=== PATIENT | male | born 1970 | race Caucasian/White ===

== ENCOUNTER → 2016-05-10 | Outpatient (CLI) | payer BC ==
[~2016-05-10] MED LIST: ALLO100T PO; IBUP-1277 PO; OLME40TA30 PO
--- NOTE | 2016-05-10 12:10 | DIAGNOSTIC IMAGING REPORT ---
CHEST 2 VIEWS ROUTINE CLINICAL HISTORY: BLOOD-TINGED SPUTUM, COUGH COMPARISON STUDY: No previous studies for comparison. FINDINGS: The cardiac and mediastinal contours are normal. There is no focal pulmonary consolidation. There is no failure. There are no pleural effusions.[ IMPRESSION: No active disease in the chest. Electronically signed by: Nathan Torres M.D. 05/10/2016 12:08 PM Dictated Date/Time: 05/10/2016 12:08 PM
== END | disposition home or self-care (01) ==
LOC: C.RADBC 11:46
PROVIDERS: ATTEND Internal Medicine Geriatric Medicine
DX: R04.2 Hemoptysis (principal); R05 Cough

== ENCOUNTER → 2016-06-27 | Outpatient (CLI) | payer BC ==
--- NOTE | 2016-06-27 14:39 | DIAGNOSTIC IMAGING REPORT ---
RIGHT FOOT MIN 3 VIEWS ROUTINE CLINICAL HISTORY: M79.673 Right pain COMPARISON: None. DISCUSSION: Mild degenerative change throughout. Heel spur. No acute bony abnormality. Study specifically negative for fracture or dislocation. There is no evidence for soft tissue swelling. IMPRESSION: No acute bony abnormality. Heel spur. Mild degenerative change. Electronically signed by: Cullen Long M.D. 06/27/2016 2:38 PM Dictated Date/Time: 06/27/2016 2:37 PM
== END | disposition home or self-care (01) ==
LOC: C.RADBC 14:08
PROVIDERS: ATTEND Internal Medicine Geriatric Medicine
DX: M79.671 Pain in right foot (principal)

== ENCOUNTER → 2017-07-29 | Outpatient (CLI) | payer OTHER ==
--- NOTE | 2017-07-29 13:38 | DIAGNOSTIC IMAGING REPORT ---
CHEST 2 VIEWS ROUTINE HISTORY: 46 years-old Male R05 Cough productive of purulent [id number] Shortness of breat acute productive cough with shortness of breath COMPARISON: Chest radiographs 05/10/2016 TECHNIQUE: PA and lateral views of the chest FINDINGS: Cardiomediastinal and hilar silhouettes are within normal limits. No pneumothorax, pleural effusion, or overt pulmonary edema. Ill-defined lingular opacities are seen on the lateral projection without correlate on the PA view. The bones of the chest appear grossly intact. IMPRESSION: Ill-defined lingular opacities seen on the lateral view are suspicious for possible pneumonia. The above report was generated using voice recognition software. It may contain grammatical, syntax or spelling errors. Electronically signed by: Shivam Nolan M.D. 07/29/2017 1:37 PM Dictated Date/Time: 07/29/2017 1:34 PM
== END | disposition home or self-care (01) ==
LOC: C.RAD1850 13:25
PROVIDERS: ATTEND Internal Medicine
DX: R91.8 Other nonspecific abnormal finding of lung field (principal); R06.02 Shortness of breath; R05 Cough; Z87.898 Personal history of other specified conditions

== ENCOUNTER → 2017-07-30 | Outpatient (CLI) | payer OTHER ==
[2017-07-30 17:06] LABS: ALT/SGPT 44 U/L (12-78); AST/SGOT 28 U/L (15-37); BLOOD UREA NITROGEN 15 mg/dl (7-18); CALCIUM 8.8 mg/dl (8.5-10.1); CARBON DIOXIDE 30 mmol/L (21-32); CHOLESTEROL 145 mg/dl (0-200); CREATININE 1.28 mg/dl (0.60-1.40); GLUCOSE 103 mg/dl (70-99); POTASSIUM 4.1 mmol/L (3.5-5.1); SODIUM 137 mmol/L (136-145); URIC ACID 6.3 mg/dl (2.6-7.2)
[2017-07-30 17:10] LABS: ALKALINE PHOSPHATASE 69 U/L (45-117); LDL CHOLESTEROL (DIRECT) 101 mg/dl; TOTAL PROTEIN 7.7 gm/dl (6.4-8.2)
[2017-07-31 06:05] LABS: HEMOGLOBIN A1C 5.5 % (4.5-5.6)
== END | disposition home or self-care (01) ==
LOC: C.LABBC 14:19
PROVIDERS: ATTEND Physician Assistant Medical
DX: M79.673 Pain in unspecified foot (principal); I10 Essential (primary) hypertension; E78.5 Hyperlipidemia, unspecified; R73.9 Hyperglycemia, unspecified

== ENCOUNTER 2020-06-13 04:16 | Inpatient (IN) ==
[2020-06-13] MEDS ORDERED: SODIUM CHLORIDE 0.9% 1000ML 1,000 ML IV ONE (04:30)
[2020-06-13] MEDS ORDERED: DEXAMETHASONE SOD INJ 10 MG/ML VIAL IV ONE (04:30)
[2020-06-13 04:39] LABS: Basophils # (auto) 0.01 K/uL (0-0.2); Basophils % (auto) 0.2 %; Eosinophils # (auto) 0.02 K/uL (0-0.5); Eosinophils % (auto) 0.4 %; Hemoglobin 15.1 g/dL (14.0-18.0); Immature Granulocytes # (auto) 0.03 K/uL (0.00-0.02); Immature Granulocytes % (auto) 0.6 %; Lymphocytes # (auto) 0.83 K/uL (1.2-3.4); Lymphocytes % (auto) 16.5 %; Mean Corpuscular Hemoglobin 29.2 pg (25-34); Mean Corpuscular Hgb Conc 34.3 g/dL (32-36); Mean Corpuscular Volume 85.1 fL (80-100); Mean Platelet Volume 11.5 fL (7.4-10.4); Monocytes # (auto) 0.48 K/uL (0.11-0.59); Monocytes % (auto) 9.5 %; Neutrophils # (auto) 3.66 K/uL (1.4-6.5); Neutrophils % (auto) 72.8 %; Platelet Count 169 K/uL (130-400); RDW Coefficient of Variation 13.3 % (11.5-14.5); RDW Standard Deviation 41.3 fL (36.4-46.3); Red Blood Count 5.17 M/uL (4.7-6.1); White Blood Count 5.03 K/uL (4.8-10.8)
[2020-06-13] MEDS ORDERED: ACETAMINOPHEN 1,000 MG/100 ML VIAL IV STA (04:40)
--- NOTE | 2020-06-13 04:49 | Emergency Department Note ---
History of Present Illness General Chief complaint: Shortness of Breath/Dyspnea Stated complaint: SHORT OF BREATH Time Seen by Provider: 06/13/20 04:21 Source: patient Mode of arrival: EMS Limitations: no limitations History of Present Illness Maximum Pain Intensity: 7 This patient is a 49-year-old male who arrives to the emergency department via EMS for evaluation of shortness of breath. Patient tested positive for COVID-19 6 days ago. His symptoms started 2 days before that. He has had fevers throughout the entire illness. He reports cough, shortness of breath, headache, lack of sleep, body aches and decreased appetite. He states that over the past few days, he has been coughing up "chunks of blood" and states there are tablespoon size. He has been taking Tylenol for his symptoms without much relie f. Patient was feeling more short of breath tonight. On EMS arrival, patient's O2 saturation was 78% on room air. This improved to the 90s after administration of 6 L oxygen via nasal cannula. Patient denies any history of chronic lung disease. He does have a history of sleep apnea. He is not a smoker. He denies leg pain/swelling. Denies history of blood clots. Home Medications Medication Instructions Recorded Confirmed Type escitalopram oxalate 10 mg tablet 10 mg PO DAILY #90 tab 11/04/19 06/13/20 Rx olmesartan 40 1 tab PO DAILY #90 tab 02/03/20 06/13/20 Rx mg-hydrochlorothiazide 25 mg tablet CPAP Machine See Rx Instructions .ROUTE 03/04/20 06/13/20 Rx .COMPLEX #1 ea nebivolol 5 mg tablet 5 mg PO HS #90 tab 06/09/20 06/13/20 Rx allopurinol 300 mg PO DAILY 06/13/20 06/13/20 History amlodipine 5 mg PO DAILY 06/13/20 06/13/20 History Allergies Allergy/AdvReac Type Severity Reaction Status Date / Time Cephalosporins Allergy Severe Hives Verified 06/13/20 04:36 Sulfa (Sulfonamide Allergy Mild Unknown Verified 06/13/20 04:36 Antibiotics) Penicillins Allergy Unknown Unknown Verified 06/13/20 04:36 Past Med/Surg History Medical History (Updated 06/13/20 @ 06:28 by Valorie Sher PA-C) BMI 45.0-49.9, adult Depression with anxiety Dyslipidemia Gout Hyperglycemia Hypertension Knee injury Muscle cramps Obstructive sleep apnea cpap Tear of meniscus of knee Surgical History H/O arthroscopy of knee Family History Mother Breast cancer Father Kidney malignancy Grandfather (Maternal) Prostate cancer Denies family history of Ovarian cancer Colorectal cancer Lung disease Social History Smoking Status: Never smoker Hx Alcohol Use: Yes Alcohol type: beer Hx Substance Use: No Preferred Language: Serbian Communication Ability: Effective Visual Impairment: No Limitations Hearing Ability: Normal marital status: Current Living Situation: Family Current Living Situation Comment: and son Feels Safe at Home: Yes caffeine: Yes Dental Care, Regularly: Yes Physical Activity Frequency: Daily Physical Activity Frequency Comment: work Seatbelt Use: always Sunscreen Use: Yes Review of Systems A total of 10 systems reviewed and were otherwise negative Physical Exam Vital Signs Vital Signs - 24 hr 06/13/20 04:16 06/13/20 04:18 06/13/20 04:33 Temperature 37.9 C H Temperature Source Oral Pulse Rate 75 Pulse Rate [Apical] Respiratory Rate 20 Blood Pressure 150/91 H Blood Pressure [Right Arm] Blood Pressure Mean 110 Blood Pressure Mean [Right Arm] Pulse Oximetry 83 L 94 Oxygen Delivery Method Room Air Nasal Cannula Nasal Cannula Oxygen Flow Rate 4.5 Sepsis Recent Fever Within 48 Hours Yes Sepsis New/Unexplained Change in Mental Status N/A Sepsis Action Taken by Nursing No Action Required Oxygen Flow Rate - Titration 4.5 Pulse Oximetry Post Tiitration 95 06/13/20 06:14 Temperature Temperature Source Pulse Rate Pulse Rate [Apical] 60 Respiratory Rate 23 Blood Pressure Blood Pressure [Right Arm] 136/73 Blood Pressure Mean Blood Pressure Mean [Right Arm] 94 Pulse Oximetry 95 Oxygen Delivery Method Nasal Cannula Oxygen Flow Rate 4.5 Sepsis Recent Fever Within 48 Hours Sepsis New/Unexplained Change in Mental Status Sepsis Action Taken by Nursing Oxygen Flow Rate - Titration Pulse Oximetry Post Tiitration VITALS: Vitals are noted on the nurse's note and reviewed by myself. GENERAL: This is a 49-year-old male, ill-appearing. SKIN: The skin was without rashes. HEAD: Normocephalic atraumatic. EARS: External auditory canals clear, tympanic membranes pearly sanders without erythema or effusion bilaterally. EYES: Pupils equal round and reactive to light and accommodation. NOSE: Patent, turbinates without inflammation or discharge. MOUTH: Mucous membranes moist. Tonsils are not enlarged. Pharynx without erythema or exudate. NECK: Supple without nuchal rigidity. No lymphadenopathy. HEART: Regular rate and rhythm without murmurs gallops or rubs. LUNGS: Breath sounds diminished throughout. ABDOMEN: Positive bowel sounds x 4. Soft, nontender to palpation. NEURO: Patient was alert and oriented to person place and time. Course Consultations Consultation #1: Dr. Jaeger [facility] hospitalist Administered Medications Heparin Sodium/Dextrose (Heparin Sodium/Dextrose) 25,000 units in 500 mls @ 20 mls/hr IV .Q24H [facility]; Protocol Stop: 07/13/20 06:14 Last Admin: 06/13/20 06:16 Dose: 1,000 units/hr, 20 mls/hr Documented by: [id number] Cosigned by: [id number] Discontinued Medications Dexamethasone (Dexamethasone Sod Inj 10 Mg/Ml Vial) 6 mg IV NOW ONE Stop: 06/13/20 04:31 Last Admin: 06/13/20 04:48 Dose: 6 mg Documented by: [id number] Heparin Sodium/Dextrose (Heparin Iv Low Dose *No* Bolus) 1 ea IV ONE ONE; Protocol Stop: 06/13/20 06:02 Last Admin: 06/13/20 06:22 Dose: Not Given Documented by: [id number] Heparin Sodium/Dextrose (Heparin 58742 Unit/500 Ml D5w) Confirm Administered Dose 25,000 units IV .STK-MED ONE Stop: 06/13/20 06:12 Last Admin: 06/13/20 06:16 Dose: 1,000 units Documented by: [id number] Cosigned by: [id number] Sodium Chloride (Nss 1000ml) 1,000 mls @ 999 mls/hr IV .Q1H1M ONE Stop: 06/13/20 05:30 Last Infusion: 06/13/20 05:50 Dose: 0 mls/hr Documented by: [id number] Admin: 06/13/20 04:48 Dose: 999 mls/hr Documented by: [id number] Acetaminophen (Ofirmev) 1,000 mg in 100 mls @ 400 mls/hr IV NOW STA Stop: 06/13/20 04:54 Last Infusion: 06/13/20 05:09 Dose: 0 mls/hr Documented by: [id number] Admin: 06/13/20 04:48 Dose: 400 mls/hr Documented by: [id number] Ioversol (Optiray 320 125ml) 125 ml IV ONCE ONE Stop: 06/13/20 06:17 Last Admin: 06/13/20 06:16 Dose: 117 ml Documented by: [id number] Critical Care Time Critical Care Time: Yes Total Critical Care Time: 35 I have personally spent greater than 35 minutes of critical care time in the direct management of this patient. This includes bedside care, interpretation of diagnostic studies, and testing, discussion with consultants, patient, and family members, and other required patient management activities. This 35 minutes is in excess of all separately billable procedures. Medical Decision Making Differential Diagnosis COVID-19 pneumonia, reactive airway disease, pneumonia, pneumothorax, COPD, CHF, infections, cardiac ischemia, pulmonary embolism, musculoskeletal, gastrointestinal, as well as other pathologies. Home Medications Current Medication List: was personally reviewed by me Laboratory Data Attestation: I reviewed the patient's lab results. Result diagrams: 06/13/20 04:26 06/13/20 05:15 Lab Results 06/13/20 06/13/20 06/13/20 Range/Units 04:26 04:26 04:26 WBC 5.03 (4.8-10.8) K/uL RBC 5.17 (4.7-6.1) M/uL Hgb 15.1 (14.0-18.0) g/dL Hct 44.0 (42-52) % MCV 85.1 (80-100) fL MCH 29.2 (25-34) pg MCHC 34.3 (32-36) g/dL RDW Std Deviation 41.3 (36.4-46.3) fL RDW Coeff of Krishan 13.3 (11.5-14.5) % Plt Count 169 (130-400) K/uL MPV 11.5 H (7.4-10.4) fL Immature Gran % (Auto) 0.6 % Neut % (Auto) 72.8 % Lymph % (Auto) 16.5 % [place] % (Auto) 9.5 % Eos % (Auto) 0.4 % Baso % (Auto) 0.2 % Neut # (Auto) 3.66 (1.4-6.5) K/uL Lymph # (Auto) 0.83 L (1.2-3.4) K/uL [place] # (Auto) 0.48 (0.11-0.59) K/uL Eos # (Auto) 0.02 (0-0.5) K/uL Baso # (Auto) 0.01 (0-0.2) K/uL Immature Gran # (Auto) 0.03 H (0.00-0.02) K/uL PT Cancelled INR Cancelled APTT Cancelled PTT Ratio Cancelled D-Dimer Cancelled Sodium Cancelled Potassium Cancelled Chloride Cancelled Carbon Dioxide Cancelled Anion Gap Cancelled BUN Cancelled Creatinine Cancelled Est Cr Clr Drug Dosing Cancelled Est GFR ( Amer) Cancelled Est GFR (Non-Af Amer) Cancelled BUN/Creatinine Ratio Cancelled Glucose Cancelled Lactate (0.4-2.0) mmol/L Calcium Cancelled Total Bilirubin Cancelled AST Cancelled ALT Cancelled Alkaline Phosphatase Cancelled Troponin I Cancelled Total Protein Cancelled Albumin Cancelled Globulin Cancelled Albumin/Globulin Ratio Cancelled 06/13/20 06/13/20 06/13/20 Range/Units 05:15 05:15 05:15 WBC (4.8-10.8) K/uL RBC (4.7-6.1) M/uL Hgb (14.0-18.0) g/dL Hct (42-52) % MCV (80-100) fL MCH (25-34) pg MCHC (32-36) g/dL RDW Std Deviation (36.4-46.3) fL RDW Coeff of Krishan (11.5-14.5) % Plt Count (130-400) K/uL MPV (7.4-10.4) fL Immature Gran % (Auto) % Neut % (Auto) % Lymph % (Auto) % [place] % (Auto) % Eos % (Auto) % Baso % (Auto) % Neut # (Auto) (1.4-6.5) K/uL Lymph # (Auto) (1.2-3.4) K/uL [place] # (Auto) (0.11-0.59) K/uL Eos # (Auto) (0-0.5) K/uL Baso # (Auto) (0-0.2) K/uL Immature Gran # (Auto) (0.00-0.02) K/uL PT 10.5 INR 1.0 APTT 29.5 PTT Ratio 1.1 D-Dimer 800 H* Sodium 138 Potassium 4.0 Chloride 103 Carbon Dioxide 30 Anion Gap 5.0 BUN 14 Creatinine 1.14 Est Cr Clr Drug Dosing 125.8 Est GFR ( Amer) 87.7 Est GFR (Non-Af Amer) 75.6 BUN/Creatinine Ratio 12.5 Glucose 106 H Lactate 0.7 (0.4-2.0) mmol/L Calcium 8.0 L Total Bilirubin 0.7 AST 44 H ALT 46 Alkaline Phosphatase 53 Troponin I < 0.015 Total Protein 7.1 Albumin 3.4 Globulin 3.7 Albumin/Globulin Ratio 0.9 Imaging Data Attestation: I personally reviewed and interpreted this imaging study as follows: My Impression: CHEST 1 VIEW: Patchy bilateral infiltrates consistent with a multifocal pneumonia Radiologist's Impression: CTA CHEST: No evidence for pulmonary embolism. No AV malformation. The location of the reported hemoptysis is not clearly evident. Diffuse irregular ground-glass opacities are consistent with reported positive Covid viral pneumonia. No lobar consolidation. No pleural effusion or pneumothorax. No endobronchial filling defect. The thoracic aorta and cardiac chambers are unremarkable. No pericardial effusion Paratracheal, prevascular and hilar lymph nodes are nonspecific and presumed reactive. No acute osseous or significant overlying soft tissue abnormality. Radiologist: Koko Marquis MD ECG Data Attestation: I personally reviewed and interpreted this ECG as follows: Indication: + SOB/dyspnea Rate (beats per minute): 75 Rhythm: + normal sinus ECG Intervals/blocks: + Normal QRS ECG ST segments: + Normal ST segments Comparison ECG Date: no prior available MDM Narrative Continuous alarm security or surveillance monitor: Order was placed for continuous alarm security or surveillance monitor. Patient was placed on the alarm security or surveillance monitor. Patient was noted to be in normal sinus rhythm at an initial rate of 75 bpm. The patient is a 49-year-old male who presents today complaining of shortness of breath. Patient recently tested positive for COVID-19. Per EMS, patient was 78% on room air when they arrived. On arrival here, patient was 83% on room air, however this improved to the mid 90s on 4.5 L nasal cannula. Patient is febrile and was given Tylenol for this. He looks slightly dry clinically and was given a liter of fluids. He was given IV Decadron. Chest x-ray consistent with Covid pneumonia. Labs with no leukocytosis, anemia or concerning electrolyte abnormalities. D-dimer was elevated at 800. Troponin was not elevated. CT angiogram of the chest with multifocal pneumonia, no PE. Case was discussed with the [facility] hospitalist service, who agreed to evaluate the patient for further care. Impression & Plan Pneumonia due to COVID-19 virus, Hypoxia Discharge Plan Visit Data Chief Complaint: Shortness of Breath/Dyspnea Stated Complaint: SHORT OF BREATH ED Provider: Joie [facility] ED Midlevel Provider: Valorie Sher Discharge Problem: Pneumonia due to COVID-19 virus, Hypoxia Patient Disposition: Admitted As Inpatient Forms Stand Alone Forms: My [facility] Prescriptions Prescriptions: No Action escitalopram oxalate 10 mg tablet 10 mg PO DAILY Qty: 90 RF: 3 CPAP Machine Misc See Rx Instructions .ROUTE .COMPLEX Qty: 1 RF: 0 Bystolic 5 mg tablet 5 mg PO HS Qty: 90 RF: 3 olmesartan-hydrochlorothiazide 40-25 mg tablet 1 tab PO DAILY Qty: 90 RF: 3 amlodipine 5 mg tablet 5 mg PO DAILY RF: 0 allopurinol 300 mg Tablet 300 mg PO DAILY RF: 0 Referrals Referrals: Thanh Tracy DO [Primary Care Provider] -
[2020-06-13 05:39] LABS: Partial Thromboplastin Ratio 1.1; Partial Thromboplastin Time 29.5 Seconds (21.0-31.0); Prothrombin Time 10.5 Seconds (9.0-12.0)
[2020-06-13 05:49] LABS: Alanine Aminotransferase 46 U/L (12-78); Albumin Level 3.4 gm/dl (3.4-5.0); Aspartate Aminotransferase 44 U/L (15-37); BUN Creatinine Ratio 12.5 (10-20); Blood Urea Nitrogen 14 mg/dl (7-18); Carbon Dioxide 30 mmol/L (21-32); Chloride 103 mmol/L (98-107); Creatinine Clr Calc Pharmacy 125.8 ml/min; Est GFR (African American) 87.7; Est GFR (Non-African American) 75.6; Glucose 106 mg/dl (70-99); Sodium 138 mmol/L (136-145)
[2020-06-13 05:53] LABS: Albumin Globulin Ratio 0.9 (0.9-2); Alkaline Phosphatase 53 U/L (45-117); Bilirubin,Total 0.7 mg/dl (0.2-1); Globulin 3.7 gm/dl (2.5-4.0); Total Protein 7.1 gm/dl (6.4-8.2); Troponin I < 0.015 ng/ml (0-0.045)
[2020-06-13 05:57] LABS: D Dimer 800 ug/L FEU (0-500)
[2020-06-13] MEDS ORDERED: Heparin IV Adult Wt-Based Low-Dose *NO* Bolus Protocol IV ONE (06:01)
[2020-06-13] MEDS ORDERED: HEPARIN 25000 UNIT/500 ML D5W IV ONE (06:11)
[2020-06-13] MEDS: HEPARIN SODIUM/DEXTROSE 25,000 UNITS/500 ML BAG IV SCH (06:16)
[2020-06-13] MEDS ORDERED: OPTIRAY 320 125ml IV ONE (06:16)
--- NOTE | 2020-06-13 07:04 | History & Physical Report ---
Date of Service June 13, 2020 Assessment & Plan (1) Pneumonia due to COVID-19 virus: Pneumonia due to COVID-19 virus with hypoxia- Admit to monitored bed Nasal cannula oxygen, titrate to keep pulse ox 94% Dexamethasone 6 mg IV every morning Zinc sulfate turn 20 mg p.o. every morning Vitamin D 2000 international units daily Vancomycin IV per pharmacokinetic monitoring Aztreonam 1000mg IV every 8 hours Azithromycin 500 mg IV every 24 hours Patient with worsening symptoms after 9 days of concern regarding secondary bacterial pneumonia, and he is allergic to cephalosporins and penicillins. Present on Admission?: Yes (2) Hypoxia: See above Present on Admission?: Yes (3) Depression with anxiety: Continue Escitalopram Present on Admission?: Yes (4) Gout: Continue allopurinol Present on Admission?: Yes (5) Dyslipidemia: On no specific treatment Present on Admission?: Yes (6) Hyperglycemia: Glucose 106 upon admission, if increases while on dexamethasone, can start Accu-Cheks at that time Present on Admission?: Yes (7) Hypertension: Continue amlodipine 5 mg daily and nebivolol 5 mg daily. For now hold on losartan/HCTZ 40/25 daily Present on Admission?: Yes (8) Obstructive sleep apnea: CPAP at bedtime, patient thinks his setting is 10. Present on Admission?: Yes History of Present Illness Chief Complaint: The patient presents to the emergency department with worsening shortness of breath over the past 3 evenings. Primary Care Provider: Thanh Tracy DO The patient is a 49-year-old male with a past medical history including depression with anxiety, morbid obesity, dyslipidemia, gout, hyperglycemia, hypertension and obstructive sleep apnea. He began to initially have difficulty with worsening shortness of breath about 9 days ago, had COVID-19 testing done on 06/07/20, and was told that it was positive on 06/09/20. He presents to the emergency department this evening because of inability to sleep over the past 3 nights due to severe headache and shortness of breath. In the emergency department, patient was found to have a temperature 100.2 F, and a pulse ox on room air of 83%, which improved to 96% on 4 L/min nasal cannula oxygen. Abnormal laboratories include the following: D-dimer 800, glucose 106, calcium 8.0, AST 44. CT angiography chest PE protocol showed no evidence for PE. No review information. Did show diffuse irregular groundglass opacities consistent with reported positive Covid viral pneumonia Allergies Allergy/AdvReac Type Severity Reaction Status Date / Time Cephalosporins Allergy Severe Hives Verified 06/13/20 04:36 Sulfa (Sulfonamide Allergy Mild Unknown Verified 06/13/20 04:36 Antibiotics) Penicillins Allergy Unknown Unknown Verified 06/13/20 04:36 Home Medications Medication Instructions Recorded Confirmed Type escitalopram oxalate 10 mg tablet 10 mg PO DAILY #90 tab 11/04/19 06/13/20 Rx olmesartan 40 1 tab PO DAILY #90 tab 02/03/20 06/13/20 Rx mg-hydrochlorothiazide 25 mg tablet CPAP Machine See Rx Instructions .ROUTE 03/04/20 06/13/20 Rx .COMPLEX #1 ea nebivolol 5 mg tablet 5 mg PO HS #90 tab 06/09/20 06/13/20 Rx allopurinol 300 mg PO DAILY 06/13/20 06/13/20 History amlodipine 5 mg PO DAILY 06/13/20 06/13/20 History Past Med/Surg History Medical History (Updated 06/13/20 @ 06:28 by Valorie Sher PA-C) BMI 45.0-49.9, adult Depression with anxiety Dyslipidemia Gout Hyperglycemia Hypertension Knee injury Muscle cramps Obstructive sleep apnea cpap Tear of meniscus of knee Surgical History H/O arthroscopy of knee Family History Mother Breast cancer Father Kidney malignancy Grandfather (Maternal) Prostate cancer Denies family history of Ovarian cancer Colorectal cancer Lung disease Social History Smoking Status: Never smoker Hx Alcohol Use: Yes Alcohol type: beer Hx Substance Use: No Preferred Language: Greenlandic Communication Ability: Effective Visual Impairment: No Limitations Hearing Ability: Normal marital status: Current Living Situation: Family Current Living Situation Comment: and son Feels Safe at Home: Yes caffeine: Yes Dental Care, Regularly: Yes Physical Activity Frequency: Daily Physical Activity Frequency Comment: work Seatbelt Use: always Sunscreen Use: Yes Review of Systems Review of Systems: The patient denies palpitations, cough, lower extremity swelling, sore throat, fevers, chills, sweats, nausea, vomiting, diarrhea , constipation, abdominal pain, pelvic pain, blood in urine or stool, dysuria, urinary frequency or urgency, lightheadedness, dizziness, memory loss, loss of consciousness, rash, abnormal bruising or bleeding, imbalance, focal or generalized weakness, numbness or tingling in arms or legs, generalized arthralgias or myalgias, back or neck pain, or night sweats. The review of systems is otherwise negative other than for that already noted above, and at least 10 systems have been reviewed. Physical Exam Physical Exam: The patient is awake, alert and oriented 3, well developed and well nourished, normocephalic and atraumatic, lying in bed and in no acute distress. HEENT--PERRL, EOMI, mucous membranes and oropharynx normal. Neck--supple. No JVD. No bruits. Thyroid normal, trachea midline, no adenopathy. Heart--normal S1 and S2. No murmurs, rubs or gallops. Lungs--decreased breath sounds throughout. No respiratory distress, no accessory muscle use. Abdomen--normal bowel sounds and soft. Nontender. Nondistended. Morbidly obese Extremities--no cyanosis or clubbing. No edema. Dermatologic--normal skin turgor, normal color, no abnormal lymph nodes, no rash. Neurologic--cranial nerves II through XII grossly intact. Rheumatologic--normal range of motion. Psychiatric--normal affect. Results & Data Results & Data ([facility]) Vital Signs (Past 12 Hours) Vital Signs Temp Pulse Pulse Resp BP BP Pulse Ox 06/13/20 06:42 55 L 18 136/73 96 06/13/20 06:14 60 23 136/73 95 06/13/20 04:33 94 06/13/20 04:16 100.2 F H 75 20 150/91 H 83 L Laboratory Results Laboratory Results WBC 5.03 K/uL (4.8-10.8) 06/13/20 04:26 RBC 5.17 M/uL (4.7-6.1) 06/13/20 04:26 Hgb 15.1 g/dL (14.0-18.0) 06/13/20 04:26 Hct 44.0 % (42-52) 06/13/20 04:26 MCV 85.1 fL (80-100) 06/13/20 04:26 MCH 29.2 pg (25-34) 06/13/20 04:26 MCHC 34.3 g/dL (32-36) 06/13/20 04:26 RDW Std Deviation 41.3 fL (36.4-46.3) 06/13/20 04:26 RDW Coeff of Krishan 13.3 % (11.5-14.5) 06/13/20 04:26 Plt Count 169 K/uL (130-400) 06/13/20 04:26 MPV 11.5 fL (7.4-10.4) H 06/13/20 04:26 Immature Gran % (Auto) 0.6 % 06/13/20 04:26 Neut % (Auto) 72.8 % 06/13/20 04:26 Lymph % (Auto) 16.5 % 06/13/20 04:26 Stewart % (Auto) 9.5 % 06/13/20 04:26 Eos % (Auto) 0.4 % 06/13/20 04:26 Baso % (Auto) 0.2 % 06/13/20 04:26 Neut # (Auto) 3.66 K/uL (1.4-6.5) 06/13/20 04:26 Lymph # (Auto) 0.83 K/uL (1.2-3.4) L 06/13/20 04:26 Stewart # (Auto) 0.48 K/uL (0.11-0.59) 06/13/20 04:26 Eos # (Auto) 0.02 K/uL (0-0.5) 06/13/20 04:26 Baso # (Auto) 0.01 K/uL (0-0.2) 06/13/20 04:26 Immature Gran # (Auto) 0.03 K/uL (0.00-0.02) H 06/13/20 04:26 PT 10.5 Seconds (9.0-12.0) 06/13/20 05:15 INR 1.0 (0.9-1.1) 06/13/20 05:15 APTT 29.5 Seconds (21.0-31.0) 06/13/20 05:15 PTT Ratio 1.1 06/13/20 05:15 D-Dimer 800 ug/L FEU (0-500) H* 06/13/20 05:15 Sodium 138 mmol/L (136-145) 06/13/20 05:15 Potassium 4.0 mmol/L (3.5-5.1) 06/13/20 05:15 Chloride 103 mmol/L (98-107) 06/13/20 05:15 Carbon Dioxide 30 mmol/L (21-32) 06/13/20 05:15 Anion Gap 5.0 (3-11) 06/13/20 05:15 BUN 14 mg/dl (7-18) 06/13/20 05:15 Creatinine 1.14 mg/dl (0.6-1.4) 06/13/20 05:15 Est Cr Clr Drug Dosing 125.8 ml/min 06/13/20 05:15 Est GFR ( Amer) 87.7 06/13/20 05:15 Est GFR (Non-Af Amer) 75.6 06/13/20 05:15 BUN/Creatinine Ratio 12.5 (10-20) 06/13/20 05:15 Glucose 106 mg/dl (70-99) H 06/13/20 05:15 Lactate 0.7 mmol/L (0.4-2.0) 06/13/20 05:15 Calcium 8.0 mg/dl (8.5-10.1) L 06/13/20 05:15 Total Bilirubin 0.7 mg/dl (0.2-1) 06/13/20 05:15 AST 44 U/L (15-37) H 06/13/20 05:15 ALT 46 U/L (12-78) 06/13/20 05:15 Alkaline Phosphatase 53 U/L (45-117) 06/13/20 05:15 Troponin I < 0.015 ng/ml (0-0.045) 06/13/20 05:15 Total Protein 7.1 gm/dl (6.4-8.2) 06/13/20 05:15 Albumin 3.4 gm/dl (3.4-5.0) 06/13/20 05:15 Globulin 3.7 gm/dl (2.5-4.0) 06/13/20 05:15 Albumin/Globulin Ratio 0.9 (0.9-2) 06/13/20 05:15 Blood Type O Positive 06/13/20 05:15 Antibody Screen NEGATIVE 06/13/20 05:15 Diagnostic Findings [facility] Patient: QUINTON SOSA (Male) : 72 Status: ER Date: 06/13/20 06:15 Room #: History: SOB, HEMOPTYSIS, COVID + Slices: [phone] Priors: Tech: Quang Cantu @ [phone] Exams: CTA CHEST Contrast: IV Amt: 117 ML OPTIRAY 320 Accession Numbers: [id number] Preliminary Findings Only See Final Report For Complete Findings CTA CHEST: No evidence for pulmonary embolism. No AV malformation. The location of the reported hemoptysis is not clearly evident. Diffuse irregular ground-glass opacities are consistent with reported positive Covid viral pneumonia. No lobar consolidation. No pleural effusion or pneumothorax. No endobronchial filling defect. The thoracic aorta and cardiac chambers are unremarkable. No pericardial effusion Paratracheal, prevascular and hilar lymph nodes are nonspecific and presumed reactive. No acute osseous or significant overlying soft tissue abnormality. Radiologist: Koko Marquis MD Study ready at 06:22 and initial results transmitted at 06:33 *This report constitutes a preliminary interpretation only. Non-acute findings felt to be unrelated to the clinical presentation may not be discussed in this report. The study will be interpreted and a final report will be generated by the local Radiologist the following shift. To reach the hospital radiology department call [phone]. If a discrepancy is found between the preliminary and final interpretations of this study, please notify us via our Client Portal at [email or web address] under QA [email or web address].You can also fax this report with a description of the discrepancy, or include the final report, to our daytime fax number [phone].If faxing, please indicate the severity of discrepancy using one of the following categories: [ ] 1 - Agree/Informational [ ] 2 - Unlikely to Affect Management [ ] 3 - Possible Eventual Change of Management [ ] 4 - Probable Immediate Change of Management For all other patient related information, please fax us at [phone]. [id number] Code Status & VTE Plan Code Status Full code VTE Prophylaxis Plan VTE Prophylaxis will be ordered: Yes PG Care Time/CCT Total # of Minutes Spent Total Time Spent with Patient: Total time spent is greater than 50% in coordination of care (as documented) at patient's floor/unit and/or counseling patient: Coding Level of Care Code 96329 Initial Inpt Care Lvl 3 Diagnoses Pneumonia due to COVID-19 virus U07.1; J12.82 Hypoxia R09.02 Depression with anxiety F41.8 Gout M10.9 Dyslipidemia E78.5 Hyperglycemia R73.9 Hypertension I10 Obstructive sleep apnea G47.33
--- NOTE | 2020-06-13 07:05 | XRay Report ---
XR chest 1V portable CLINICAL HISTORY: Shortness of breath. Covid 19 positive patient COMPARISON STUDY: No previous studies for comparison. FINDINGS: The heart is the upper limits of normal in size. There are multifocal airspace opacities co nsistent with a multifocal pneumonia. There are no significant pleural effusions.[ IMPRESSION: Multifocal airspace opacities consistent with a multifocal pneumonia ACT 112: Negative or not required by law. Electronically signed by: Nathan Torres M.D. 06/13/2020 7:04 AM
--- NOTE | 2020-06-13 07:08 | CT Scan Report ---
CT ANGIOGRAM OF THE CHEST CLINICAL HISTORY: covid+, dyspnea, hemoptysis COMPARISON STUDY: Chest x-ray performed 06/13/2020 TECHNIQUE: Following the IV administration of 117 mL of Optiray-320, CT angiogram of the thorax was p erformed from the thoracic inlet to the lung bases utilizing the pulmonary embolus protocol. Images a re reviewed in the axial, sagittal, and coronal planes. IV contrast was administered without complica tion. MIP imaging was performed. A dose lowering technique was utilized adhering to the principles o f ALARA. CT DOSE: 587.22 mGycm FINDINGS: There is mild mediastinal and hilar lymphadenopathy, likely reactive. There was no evidence of thoracic aortic dilatation. There were no pulmonary artery filling defects to indicate acute pulmonary embolism. Trace pleural effusions There are multifocal groundglass pulmonary opacities with a slight peripheral distribution. The findi ngs are consistent with a multifocal pneumonia, likely viral. IMPRESSION: 1. No evidence of acute pulmonary embolism 2. Multifocal airspace opacities consistent with a multifocal pneumonia 3. Trace pleural effusions 4. Mild adenopathy likely reactive ACT 112: Negative or not required by law. Electronically signed by: Nathan Torres M.D. 06/13/2020 7:06 AM
[2020-06-13] MEDS ORDERED: VANCOMYCIN CONSULT ACTIVE PRN (07:29)
[2020-06-13] MEDS ORDERED: ONDANSETRON INJ 2 MG/ML 2 ML VIAL IV PRN (07:29)
[2020-06-13] MEDS ORDERED: ACETAMINOPHEN 325 MG TAB PO PRN (07:29)
[2020-06-13] MEDS ORDERED: ALBUT/IPRATROP 3MG/0.5MG NEB 3 ML VIAL NEB PRN (07:29)
[2020-06-13] MEDS ORDERED: VANCOMYCIN HCL 1,000 MG in SODIUM CHLORIDE 0.9% 250 ML IV SCH (07:29)
--- NOTE | 2020-06-13 08:22 | Electrocardiogram Report ---
Test Reason : Blood Pressure : / mmHG Vent. Rate : 075 BPM Atrial Rate : 075 BPM P-R Int : 152 ms QRS Dur : 096 ms QT Int : 416 ms P-R-T Axes : -11 048 -10 degrees QTc Int : 464 ms Normal sinus rhythm Nonspecific ST abnormality No previous ECGs available Confirmed by Bora Kc ([id number]) on 06/13/2020 8:21:50 AM Referred By: REFERRED SELF Confirmed By:Jake Kc
[2020-06-13] MEDS: AZITHROMYCIN 500 MG in DEXTROSE 5% 250 ML IV SCH (08:47)
[2020-06-13] MEDS: dexAMETHasone 6 MG in SYRINGE 0 ML IV SCH (09:00)
[2020-06-13] MEDS ORDERED: Nursing to Pharmacy Communication SCH ×2 (09:15→18:00)
[2020-06-13] MEDS ORDERED: VANCOMYCIN HCL 2,500 MG in SODIUM CHLORIDE 0.9% 500 ML IV ONE (10:30)
[2020-06-13] MEDS: ESCITALOPRAM OXALATE 10 MG TAB PO SCH (10:55)
[2020-06-13] MEDS: CHOLECALCIFEROL 1,000 UNITS 25 MCG TAB PO SCH (10:56)
[2020-06-13] MEDS: ZINC SULFATE 220 MG CAPSULE PO SCH (10:56)
[2020-06-13] MEDS: allopurinoL 300 MG TAB PO SCH (10:56)
[2020-06-13] MEDS: amLODIPine BESYLATE 5 MG TAB PO SCH (10:56)
[2020-06-13] MEDS ORDERED: ALBUTEROL HFA 8 GM INHALER INH SCH (11:00)
--- NOTE | 2020-06-13 11:27 | Pharmacy Report ---
Pharmacy Abx Dose Short Note - Date of Service June 13, 2020 - Assessment & Plan Assessment 49 year old male admitted with worsening shortness of breath ~9 days ago, positive COVID test 06/09/20. PMHx significant for morbid obesity, hld, htn, obstructive sleep apnea. Patient started empirically on vancomycin, azith, azactam for possible pneumonia. Plan Vancomycin * Received loading dose of vancomycin 2500 mg (~16 mg/kg/dose) loading dose * Plan to start vancomycin 1500 mg (~10 mg/kg/dose) iv q 8 hrs to achieve estimated trough ~15-20 mcg/ml * Less than traditional dosing selected for vancomycin d/t BMI >35 kg/m2 and increased risk of drug accumulation with dosing * Plan to obtain level prior to the 1000 dose tomorrow to ensure stable * Estimated kinetics: t1/2<8 hrs, ke~0.08hr-1, crcl ~100 Pharmacy will continue to follow and will adjust dose/frequency as necessary. Thank you.
[2020-06-13 12:48] LABS: Partial Thromboplastin Ratio 1.4; Partial Thromboplastin Time 36.2 Seconds (21.0-31.0)
[2020-06-13] MEDS ORDERED: HEPARIN IV BOLUS 4,000 UNITS in SYRINGE 0 ML IV ONE (13:00)
[2020-06-13] MEDS: AZTREONAM 1,000 MG in DEXTROSE 5% 100 ML IV SCH ×2 (13:49→20:03)
[2020-06-13] MEDS ORDERED: ALBUTEROL HFA 8 GM INHALER INH PRN (14:35)
--- NOTE | 2020-06-13 17:16 | History & Physical Bridge Note ---
Date of Service June 13, 2020 History & Physical Bridge Note I have examined the patient, reviewed the History & Physical and in the interval since the performance of the History & Physical I have noted the following changes of clinical significance: Pt observed through the window as he was already seen today by an attending phsyician and has COVID. He appeared quite comfortable and was sitting up in bed. PCT and MRSA swabs ordered this AM and both are negative--> dc VANC for now and consider de-escalation of other abx in 48 hrs if BCxs neg. Continue all other treatment as before.
[2020-06-13] MEDS ORDERED: VANCOMYCIN HCL 1,500 MG in SODIUM CHLORIDE 0.9% 500 ML IV SCH (18:00)
[2020-06-13 19:52] LABS: Partial Thromboplastin Ratio 1.5
[2020-06-13] MEDS: METOPROLOL TARTRATE 25 MG TAB PO SCH (20:02)
[2020-06-14 02:37] LABS: Basophils # (auto) 0.01 K/uL (0-0.2); Basophils % (auto) 0.1 %; Hematocrit (blood only) 40.7 % (42-52); Hemoglobin 13.6 g/dL (14.0-18.0); Immature Granulocytes # (auto) 0.04 K/uL (0.00-0.02); Immature Granulocytes % (auto) 0.5 %; Lymphocytes # (auto) 0.88 K/uL (1.2-3.4); Lymphocytes % (auto) 11.2 %; Mean Corpuscular Hemoglobin 28.9 pg (25-34); Mean Corpuscular Hgb Conc 33.4 g/dL (32-36); Mean Corpuscular Volume 86.6 fL (80-100); Mean Platelet Volume 10.2 fL (7.4-10.4); Monocytes # (auto) 0.92 K/uL (0.11-0.59); Monocytes % (auto) 11.7 %; Neutrophils # (auto) 6.02 K/uL (1.4-6.5); Neutrophils % (auto) 76.5 %; Platelet Count 211 K/uL (130-400); RDW Standard Deviation 41.6 fL (36.4-46.3); White Blood Count 7.87 K/uL (4.8-10.8)
[2020-06-14 02:48] LABS: Partial Thromboplastin Ratio 1.4; Partial Thromboplastin Time 35.6 Seconds (21.0-31.0); Prothrombin Time 10.4 Seconds (9.0-12.0)
[2020-06-14 02:56] LABS: Albumin Level 3.1 gm/dl (3.4-5.0); BUN Creatinine Ratio 15.6 (10-20); Creatinine Clr Calc Pharmacy 113.1 ml/min; Est GFR (African American) 77.7; Potassium 4.3 mmol/L (3.5-5.1)
[2020-06-14 02:59] LABS: Albumin Globulin Ratio 0.8 (0.9-2); Bilirubin,Total 0.5 mg/dl (0.2-1); Globulin 3.8 gm/dl (2.5-4.0); Total Protein 6.9 gm/dl (6.4-8.2)
[2020-06-14] MEDS: HEPARIN SODIUM/DEXTROSE 25,000 UNITS/500 ML BAG IV SCH ×2 (03:08→17:16)
[2020-06-14] MEDS ORDERED: HEPARIN IV BOLUS 4,000 UNITS in SYRINGE 0 ML IV ONE (03:15)
[2020-06-14] MEDS: AZTREONAM 1,000 MG in DEXTROSE 5% 100 ML IV SCH ×3 (05:14→20:59)
[2020-06-14] MEDS: AZITHROMYCIN 500 MG in DEXTROSE 5% 250 ML IV SCH (07:33)
[2020-06-14] MEDS: dexAMETHasone 6 MG in SYRINGE 0 ML IV SCH (07:34)
[2020-06-14] MEDS: ESCITALOPRAM OXALATE 10 MG TAB PO SCH (07:37)
[2020-06-14] MEDS: allopurinoL 300 MG TAB PO SCH (07:38)
[2020-06-14] MEDS: ZINC SULFATE 220 MG CAPSULE PO SCH (07:38)
[2020-06-14] MEDS: amLODIPine BESYLATE 5 MG TAB PO SCH (07:38)
[2020-06-14] MEDS: CHOLECALCIFEROL 1,000 UNITS 25 MCG TAB PO SCH (07:38)
[2020-06-14] MEDS: METOPROLOL TARTRATE 25 MG TAB PO SCH ×2 (07:41→20:58)
[2020-06-14] MEDS ORDERED: VANCOMYCIN TROUGH ONE (09:30)
[2020-06-14 09:57] LABS: Partial Thromboplastin Ratio 1.2; Partial Thromboplastin Time 32.8 Seconds (21.0-31.0)
[2020-06-14] MEDS ORDERED: guaiFENesin/DEXTROM SYRUP 200MG/20MG 10ML UDC PO PRN (17:13)
--- NOTE | 2020-06-14 17:13 | Hospitalist Progress Note ---
Date of Service June 14, 2020 Assessment & Plan (1) Pneumonia due to COVID-19 virus: With evidence of multifocal pneumonia on chest CT Presented after 9 days of symptoms of Covid-19 With acute respiratory failure with hypoxia Improving today clinically, remains with cough that is coarse and remains on 6 L nasal cannula MRSA swab negative and vancomycin was discontinued Procalcitonin is negative Blood cultures remain no growth to date -Continue nasal cannula oxygen, wean off as tolerated keep pulse ox greater than 92% -Continue dexamethasone 6 mg IV every morning -Add on guaifenesin DM 10 mL every 6 hours as needed cough -Continue incentive spirometry Continue zinc sulfate turn 20 mg p.o. every morning Continue Vitamin D 2000 international units daily -Continue aztreonam 1000mg IV every 8 hours and azithromycin 500 mg IV every 24 hours for 1 more day and if blood cultures remain negative, will discontinue aztreonam -Will need chest x-ray to resolution of pneumonia in 3 to 4 weeks as an outpatient (2) Hypoxia: With acute respiratory failure with hypoxia Remains on 6 L nasal cannula but clinically improving Wean off as tolerated as above Continue dexamethasone Continue albuterol scheduled (3) Depression with anxiety: No acute issues -continue Escitalopram (4) Gout: No acute issues -Continue allopurinol (5) Dyslipidemia: On no specific treatment (6) Hyperglycemia: Glucose 106 upon admission and 126 nonfasting labs this morning - if increases while on dexamethasone, can start Accu-Cheks at that time along with sliding scale insulin (7) Hypertension: Blood pressures are well controlled Continue amlodipine 5 mg daily and metoprolol as a substitute for home nebivolol For now hold on losartan/HCTZ 40/25 daily (8) Obstructive sleep apnea: CPAP at bedtime, patient thinks his setting is 10. (9) Hemoptysis: With scant hemoptysis secondary to inflammation and irritation likely in the bronchi Discontinue therapeutic IV heparin and transition to subcu heparin for DVT prophylaxis Watch for worsening Follow CBC (10) DVT prophylaxis: SCDs, heparin SQ Disposition-continued stay on PCU Admission and Anticipated Discharge Date Admission Date: June 13, 2020 Subjective Patient feels improved today, less short of breath but still has a bad cough that hurts his ribs at times. Coughing occurs especially with using incentive spirometer and taking deep breaths. Denies nausea or vomiting, no diarrhea. He is eating well. He remained on 6 L nasal cannula during the day but was weaned down to 4 L by the evening. He has been coughing up some bright red blood in his sputum as per nursing and heparin drip was stopped today. He reports this was happening before he was even admitted. Making urine. Has no other complaints. Telemetry with normal sinus rhythm and sinus bradycardia with rates in the 50s overnight to 60s during the day. Review of Systems Review of Systems: All systems reviewed & are unremarkable except as noted in HPI & below Physical Exam Constitutional: WD/WN, vitals as above + obese Eyes: + anicteric sclerae Neck: trachea midline, no thyromegaly Respiratory: normal respiratory effort Auscultation: + diminished lung sounds (Throughout due to body habitus) and + crackles (In lower and middle lung العلي bilaterally); no wheezes Cardiovascular: RRR, no murmur, no edema Chest (Breasts): Chest: normal inspection of chest Gastrointestinal (Abdomen): normal bowel sounds, soft, nontender, no hepatosplenomegaly Musculoskeletal: Extremities: extremities normal to inspection; no cyanosis and no clubbing Skin: no rashes, warm and dry Neurologic: moves all extremities and awake; no focal motor deficits Psychiatric: A+Ox3, euthymic affect Lymphatic: no lymphedema Results & Data Results & Data ([facility]) Vital Signs (Past 12 Hours) Vital Signs Temp Pulse Pulse Resp BP Pulse Ox 06/14/20 14:00 62 06/14/20 12:06 37.7 C H 66 18 123/73 94 06/14/20 08:00 56 L 06/14/20 07:29 37.2 C 56 L 18 137/75 91 Laboratory Results 06/14/20 06/14/20 06/14/20 Range/Units 09:15 02:07 02:07 WBC (4.8-10.8) K/uL RBC (4.7-6.1) M/uL Hgb (14.0-18.0) g/dL Hct (42-52) % MCV (80-100) fL MCH (25-34) pg MCHC (32-36) g/dL RDW Std Deviation (36.4-46.3) fL RDW Coeff of Krishan (11.5-14.5) % Plt Count (130-400) K/uL MPV (7.4-10.4) fL Immature Gran % (Auto) % Neut % (Auto) % Lymph % (Auto) % Wells % (Auto) % Eos % (Auto) % Baso % (Auto) % Neut # (Auto) (1.4-6.5) K/uL Lymph # (Auto) (1.2-3.4) K/uL Wells # (Auto) (0.11-0.59) K/uL Eos # (Auto) (0-0.5) K/uL Baso # (Auto) (0-0.2) K/uL Immature Gran # (Auto) (0.00-0.02) K/uL PT (9.0-12.0) Seconds INR (0.9-1.1) APTT 32.8 H Cancelled (21.0-31.0) Seconds PTT Ratio 1.2 Cancelled Sodium 139 (136-145) mmol/L Potassium 4.3 (3.5-5.1) mmol/L Chloride 104 (98-107) mmol/L Carbon Dioxide 30 (21-32) mmol/L Anion Gap 5.0 (3-11) BUN 20 H (7-18) mg/dl Creatinine 1.26 (0.6-1.4) mg/dl Est Cr Clr Drug Dosing 113.1 ml/min Est GFR ( Amer) 77.7 Est GFR (Non-Af Amer) 67.0 BUN/Creatinine Ratio 15.6 (10-20) Glucose 126 H (70-99) mg/dl Calcium 8.0 L (8.5-10.1) mg/dl Total Bilirubin 0.5 (0.2-1) mg/dl AST 32 (15-37) U/L ALT 43 (12-78) U/L Alkaline Phosphatase 47 (45-117) U/L Total Protein 6.9 (6.4-8.2) gm/dl Albumin 3.1 L (3.4-5.0) gm/dl Globulin 3.8 (2.5-4.0) gm/dl Albumin/Globulin Ratio 0.8 L (0.9-2) 06/14/20 06/14/20 Range/Units 02:07 02:07 WBC 7.87 (4.8-10.8) K/uL RBC 4.70 (4.7-6.1) M/uL Hgb 13.6 L (14.0-18.0) g/dL Hct 40.7 L (42-52) % MCV 86.6 (80-100) fL MCH 28.9 (25-34) pg MCHC 33.4 (32-36) g/dL RDW Std Deviation 41.6 (36.4-46.3) fL RDW Coeff of Krishan 13.0 (11.5-14.5) % Plt Count 211 (130-400) K/uL MPV 10.2 (7.4-10.4) fL Immature Gran % (Auto) 0.5 % Neut % (Auto) 76.5 % Lymph % (Auto) 11.2 % Wells % (Auto) 11.7 % Eos % (Auto) 0.0 % Baso % (Auto) 0.1 % Neut # (Auto) 6.02 (1.4-6.5) K/uL Lymph # (Auto) 0.88 L (1.2-3.4) K/uL Wells # (Auto) 0.92 H (0.11-0.59) K/uL Eos # (Auto) 0.00 (0-0.5) K/uL Baso # (Auto) 0.01 (0-0.2) K/uL Immature Gran # (Auto) 0.04 H (0.00-0.02) K/uL PT 10.4 (9.0-12.0) Seconds INR 1.0 (0.9-1.1) APTT 35.6 H (21.0-31.0) Seconds PTT Ratio 1.4 Sodium (136-145) mmol/L Potassium (3.5-5.1) mmol/L Chloride (98-107) mmol/L Carbon Dioxide (21-32) mmol/L Anion Gap (3-11) BUN (7-18) mg/dl Creatinine (0.6-1.4) mg/dl Est Cr Clr Drug Dosing ml/min Est GFR ( Amer) Est GFR (Non-Af Amer) BUN/Creatinine Ratio (10-20) Glucose (70-99) mg/dl Calcium (8.5-10.1) mg/dl Total Bilirubin (0.2-1) mg/dl AST (15-37) U/L ALT (12-78) U/L Alkaline Phosphatase (45-117) U/L Total Protein (6.4-8.2) gm/dl Albumin (3.4-5.0) gm/dl Globulin (2.5-4.0) gm/dl Albumin/Globulin Ratio (0.9-2) PG Care Time/CCT Total # of Minutes Spent Total Time Spent with Patient: Total time spent is greater than 50% in coordination of care (as documented) at patient's floor/unit and/or counseling patient: Coding Level of Care Code 83180 Subseq Hosp Care Lvl 3 Diagnoses Pneumonia due to COVID-19 virus U07.1; J12.82 Hypoxia R09.02 Depression with anxiety F41.8 Gout M10.9 Dyslipidemia E78.5 Hyperglycemia R73.9 Hypertension I10 Obstructive sleep apnea G47.33 Hemoptysis R04.2 DVT prophylaxis Z29.9
[2020-06-14] MEDS: HEPARIN SOD 5,000 UNIT/0.5 ML VIAL SQ SCH (22:08)
[2020-06-15] MEDS: AZTREONAM 1,000 MG in DEXTROSE 5% 100 ML IV SCH ×2 (05:42→13:52)
[2020-06-15] MEDS: HEPARIN SOD 5,000 UNIT/0.5 ML VIAL SQ SCH ×3 (05:42→20:54)
[2020-06-15 06:21] LABS: Basophils # (auto) 0.02 K/uL (0-0.2); Basophils % (auto) 0.2 %; Hematocrit (blood only) 40.7 % (42-52); Hemoglobin 13.5 g/dL (14.0-18.0); Immature Granulocytes # (auto) 0.07 K/uL (0.00-0.02); Immature Granulocytes % (auto) 0.8 %; Lymphocytes # (auto) 1.13 K/uL (1.2-3.4); Lymphocytes % (auto) 13.4 %; Mean Corpuscular Hemoglobin 28.9 pg (25-34); Mean Corpuscular Hgb Conc 33.2 g/dL (32-36); Mean Corpuscular Volume 87.2 fL (80-100); Mean Platelet Volume 10.1 fL (7.4-10.4); Monocytes # (auto) 0.74 K/uL (0.11-0.59); Monocytes % (auto) 8.8 %; Neutrophils # (auto) 6.48 K/uL (1.4-6.5); Neutrophils % (auto) 76.8 %; Platelet Count 249 K/uL (130-400); RDW Coefficient of Variation 13.2 % (11.5-14.5); RDW Standard Deviation 42.1 fL (36.4-46.3); Red Blood Count 4.67 M/uL (4.7-6.1); White Blood Count 8.44 K/uL (4.8-10.8)
[2020-06-15 06:47] LABS: Albumin Level 3.1 gm/dl (3.4-5.0); BUN Creatinine Ratio 18.7 (10-20); Calcium 8.5 mg/dl (8.5-10.1); Creatinine Clr Calc Pharmacy 125.9 ml/min; Est GFR (African American) 92.5; Est GFR (Non-African American) 79.8; Potassium 4.3 mmol/L (3.5-5.1)
[2020-06-15 06:50] LABS: Albumin Globulin Ratio 0.8 (0.9-2); Bilirubin,Total 0.6 mg/dl (0.2-1); Globulin 3.8 gm/dl (2.5-4.0); Total Protein 6.9 gm/dl (6.4-8.2)
[2020-06-15] MEDS: dexAMETHasone 6 MG in SYRINGE 0 ML IV SCH (08:05)
[2020-06-15] MEDS: AZITHROMYCIN 500 MG in DEXTROSE 5% 250 ML IV SCH (08:06)
[2020-06-15] MEDS: ESCITALOPRAM OXALATE 10 MG TAB PO SCH (08:26)
[2020-06-15] MEDS: amLODIPine BESYLATE 5 MG TAB PO SCH (08:27)
[2020-06-15] MEDS: CHOLECALCIFEROL 1,000 UNITS 25 MCG TAB PO SCH (08:27)
[2020-06-15] MEDS: METOPROLOL TARTRATE 25 MG TAB PO SCH ×2 (08:27→20:13)
[2020-06-15] MEDS: allopurinoL 300 MG TAB PO SCH (08:27)
[2020-06-15] MEDS: ZINC SULFATE 220 MG CAPSULE PO SCH (08:27)
--- NOTE | 2020-06-15 13:14 | Hospitalist Progress Note ---
Date of Service June 15, 2020 Assessment & Plan (1) Pneumonia due to COVID-19 virus: With evidence of multifocal pneumonia on chest CT Presented after 9 days of symptoms of Covid-19 With acute respiratory failure with hypoxia Continues to improve daily, less cough, weaned down to 4LNC and POx 96% MRSA swab negative and vancomycin was discontinued Procalcitonin is negative Blood cultures remain no growth to date x over 48 hours---> dc aztreonam and will only continue po azithro 250mg daily x 2 more days -Continue nasal cannula oxygen, wean off as tolerated keep pulse ox greater than 92% -Continue dexamethasone 6 mg IV every morning -continue guaifenesin DM 10 mL every 6 hours as needed cough -Continue incentive spirometry and flutter valve Continue zinc sulfate 220 mg p.o. every morning Continue Vitamin D 2000 international units daily -Will need chest x-ray to resolution of pneumonia in 3 to 4 weeks as an outpatient (2) Hypoxia: With acute respiratory failure with hypoxia Remains on 4 L nasal cannula and much improved Wean off as tolerated as above Continue dexamethasone Continue albuterol scheduled (3) Depression with anxiety: No acute issues -continue Escitalopram (4) Gout: No acute issues -Continue allopurinol (5) Dyslipidemia: On no specific treatment (6) Hyperglycemia: Glucose minimally elevated on AM fasting labs even on decadron - if increases while on dexamethasone, can start Accu-Cheks at that time along with sliding scale insulin (7) Hypertension: Blood pressures are well controlled Continue amlodipine 5 mg daily and metoprolol as a substitute for home nebivolol ok to restart home losartan/HCTZ 40/25 daily (8) Obstructive sleep apnea: CPAP at bedtime, patient thinks his setting is 10. he can't tolerate full facemask at hospital and is not wearing it here (9) Hemoptysis: With scant hemoptysis secondary to inflammation and irritation likely in the bronchi-less today since stopping IV heparin gtt Watch for worsening Follow CBC-stable (10) DVT prophylaxis: SCDs, heparin SQ Disposition-continued stay but can downgrade to med/surg floor Admission and Anticipated Discharge Date Admission Date: June 13, 2020 Subjective Feels much improved, is POx 96% on 4LNC. Is eating and drinking, moved bowels today, no diarrhea. No nausea or headache. He cannot tolerate the full face mask for CPAP from the hospital. No other complaints. Is using flutter valve and IS. Only very scant hemoptysis Tele with SB in the 50s Review of Systems Review of Systems: All systems reviewed & are unremarkable except as noted in HPI & below Physical Exam Constitutional: WD/WN, vitals as above + obese Eyes: + anicteric sclerae Neck: trachea midline, no thyromegaly Respiratory: normal respiratory effort Auscultation: + diminished lung sounds (Throughout due to body habitus) and + crackles (In lower and middle lung العلي bilaterally); no wheezes Cardiovascular: RRR, no murmur, no edema Chest (Breasts): Chest: normal inspection of chest Gastrointestinal (Abdomen): normal bowel sounds, soft, nontender, no hepatosplenomegaly Musculoskeletal: Extremities: extremities normal to inspection; no cyanosis and no clubbing Skin: no rashes, warm and dry Neurologic: moves all extremities and awake; no focal motor deficits Psychiatric: A+Ox3, euthymic affect Lymphatic: no lymphedema Results & Data Results & Data ([facility]) Vital Signs (Past 12 Hours) Vital Signs Temp Pulse Pulse Resp BP Pulse Ox 06/15/20 11:30 36.7 C 58 L 18 122/72 96 06/15/20 08:03 36.6 C 54 L 18 118/72 91 06/15/20 08:00 58 L 06/15/20 03:39 37.0 C 51 L 19 121/74 91 Laboratory Results 06/15/20 05:50 06/15/20 05:50 BCx -NGTD PG Care Time/CCT Total # of Minutes Spent Total Time Spent with Patient: Total time spent is greater than 50% in coordination of care (as documented) at patient's floor/unit and/or counseling patient: Coding Level of Care Code 91797 Subseq Hosp Care Lvl 3 Diagnoses Pneumonia due to COVID-19 virus U07.1; J12.82 Hypoxia R09.02 Depression with anxiety F41.8 Gout M10.9 Dyslipidemia E78.5 Hyperglycemia R73.9 Hypertension I10 Obstructive sleep apnea G47.33 Hemoptysis R04.2 DVT prophylaxis Z29.9
[2020-06-16] MEDS: HEPARIN SOD 5,000 UNIT/0.5 ML VIAL SQ SCH ×2 (05:29→13:35)
[2020-06-16 07:40] LABS: Hemoglobin 13.6 g/dL (14.0-18.0); Mean Corpuscular Hemoglobin 29.4 pg (25-34); Mean Corpuscular Volume 86.6 fL (80-100); Platelet Count 267 K/uL (130-400); RDW Coefficient of Variation 13.2 % (11.5-14.5); RDW Standard Deviation 42.2 fL (36.4-46.3); Red Blood Count 4.62 M/uL (4.7-6.1); White Blood Count 10.25 K/uL (4.8-10.8)
[2020-06-16] MEDS: METOPROLOL TARTRATE 25 MG TAB PO SCH (07:57)
[2020-06-16 08:04] LABS: Calcium 8.6 mg/dl (8.5-10.1); Creatinine Clr Calc Pharmacy 131.9 ml/min; Est GFR (African American) 97.9; Est GFR (Non-African American) 84.5; Potassium 4.3 mmol/L (3.5-5.1)
[2020-06-16 08:07] LABS: Albumin Globulin Ratio 0.8 (0.9-2); Bilirubin,Total 0.4 mg/dl (0.2-1); Globulin 3.7 gm/dl (2.5-4.0); Total Protein 6.7 gm/dl (6.4-8.2)
[2020-06-16] MEDS ORDERED: OLMESARTAN MEDOXOMIL 40 MG TAB PO SCH (09:00)
[2020-06-16] MEDS ORDERED: hydroCHLOROthiazide 25 MG TAB PO SCH (09:00)
[2020-06-16] MEDS ORDERED: AZITHROMYCIN 250 MG TAB PO SCH (09:00)
[2020-06-16 09:06] LABS: Basophils # (auto) 0.02 K/uL (0-0.2); Basophils % (auto) 0.2 %; Immature Granulocytes # (auto) 0.14 K/uL (0.00-0.02); Immature Granulocytes % (auto) 1.4 %; Lymphocytes # (auto) 1.72 K/uL (1.2-3.4); Lymphocytes % (auto) 16.8 %; Monocytes # (auto) 1.12 K/uL (0.11-0.59); Monocytes % (auto) 10.9 %; Neutrophils # (auto) 7.25 K/uL (1.4-6.5); Neutrophils % (auto) 70.7 %
[2020-06-16] MEDS: allopurinoL 300 MG TAB PO SCH (09:46)
[2020-06-16] MEDS: amLODIPine BESYLATE 5 MG TAB PO SCH (09:46)
[2020-06-16] MEDS: CHOLECALCIFEROL 1,000 UNITS 25 MCG TAB PO SCH (09:46)
[2020-06-16] MEDS: dexAMETHasone 6 MG in SYRINGE 0 ML IV SCH (09:46)
[2020-06-16] MEDS: ZINC SULFATE 220 MG CAPSULE PO SCH (09:46)
[2020-06-16] MEDS: ESCITALOPRAM OXALATE 10 MG TAB PO SCH (09:46)
--- NOTE | 2020-06-16 11:54 | Discharge Summary ---
Date of Service June 16, 2020 Admission HPI Per Admitting Provider The patient is a 49-year-old male with a past medical history including depression with anxiety, morbid obesity, dyslipidemia, gout, hyperglycemia, hypertension and obstructive sleep apnea. He began to initially have difficulty with worsening shortness of breath about 9 days ago, had COVID-19 testing done on 06/07/20, and was told that it was positive on 06/09/20. He presents to the emergency department this evening because of inability to sleep over the past 3 nights due to severe headache and shortness of breath. In the emergency department, patient was found to have a temperature 100.2 F, and a pulse ox on room air of 83%, which improved to 96% on 4 L/min nasal cannula oxygen. Abnormal laboratories include the following: D-dimer 800, glucose 106, calcium 8.0, AST 44. CT angiography chest PE protocol showed no evidence for PE. No review information. Did show diffuse irregular groundglass opacities consistent with reported positive Covid viral pneumonia Principal Diagnosis COVID-19 Pneumonia, Acute respiratory failure with hypoxia Discharge Exam Constitutional WD/WN, vitals as above + obese Eyes + anicteric sclerae Neck trachea midline, no thyromegaly Respiratory normal respiratory effort, lungs clear to auscultation Cardiovascular RRR, no murmur, no edema Extremities: no calf tenderness Chest (Breasts) Chest: normal inspection of chest Gastrointestinal (Abdomen) normal bowel sounds, soft, nontender, no hepatosplenomegaly Musculoskeletal Extremities: extremities normal to inspection; no cyanosis and no clubbing Skin no rashes, warm and dry Neurologic moves all extremities and awake; no focal motor deficits Psychiatric A+Ox3, euthymic affect Lymphatic no lymphedema Discharge Data Allergies Allergy/AdvReac Type Severity Reaction Status Date / Time Cephalosporins Allergy Severe Hives Verified 06/13/20 04:36 Sulfa (Sulfonamide Allergy Mild Unknown Verified 06/13/20 04:36 Antibiotics) Penicillins Allergy Unknown Unknown Verified 06/13/20 04:36 Consultations 06/13/20 05:26 ED Decision to Admit Stat Ordered Studies 06/13/20 04:30 CT angio chest PE protocol Urgent CXR Hospital Course (1) Pneumonia due to COVID-19 virus: With evidence of multifocal pneumonia on chest CT Presented after 9 days of symptoms of Covid-19 With acute respiratory failure with hypoxia requiring 6LNC upon admission Now significantly improved, weaned completely off O2 Initially on Vanco and Aztreonam, azithro for possible secondary bacterial PNA MRSA swab negative and vancomycin was discontinued Procalcitonin is negative Blood cultures remain no growth to date x over 72 hours---> dcd aztreonam and will only continue po azithro 250mg daily x 1 more day as an outpt he has had some scant hemoptysis but this is now much improved Cough is much improved -Continue dexamethasone 6 mg po every morning x 6 more days -Continue incentive spirometry and flutter valve -Will need chest x-ray to resolution of pneumonia in 3 to 4 weeks as an outpatient Stable for dc to home (2) Hypoxia: With acute respiratory failure with hypoxia weaned off O2 as above Continue dexamethasone (3) Depression with anxiety: No acute issues -continue Escitalopram (4) Gout: No acute issues -Continue allopurinol (5) Dyslipidemia: On no specific treatment (6) Hyperglycemia: Glucose minimally elevated on AM fasting labs even on decadron (7) Hypertension: Blood pressures are well controlled Continue amlodipine 5 mg daily and home nebivolol upon discharge continue home losartan/HCTZ 40/25 daily (8) Obstructive sleep apnea: CPAP at bedtime, patient thinks his setting is 10. he can't tolerate full facemask at hospital and is not wearing it here restart home CPAP upon discharge (9) Hemoptysis: With scant hemoptysis secondary to inflammation and irritation likely in the bronchi-less since stopping IV heparin gtt hgb stable no further eval needed, should improve over time gave precautions to return if worsens (10) DVT prophylaxis: SCDs, heparin SQ Disposition-dc to home Total Time Total Time Spent Total Time Spent (In Minutes): 35 min Total Time Includes: Examination of the Patient, Discharge Planning and Medication Reconciliation Discharge Plan Discharge Items Patient Disposition: Home - Self-Care Reason For Visit: covid-19 pneumonia with hypoxia Discharge Diagnosis: COVID-19 Pneumonia, Acute respiratory failure with hypoxia Condition on Discharge: Good Activity: As commented below Lifting: Gradually increase as tolerated Bathing: No limitations Exercise/Sports: Gradually increase as tolerated Non-emergency contact: Primary Care Provider Call non-emergency contact if: you have any medication questions and your symptoms worsen Follow-up/Referrals: Thanh Tracy DO [Primary Care Provider] - (Follow up within 1-2 weeks after discharge ) Diet: Heart Healthy Addtl Attending Provider Instructions: You were admitted for COVID-19 Pneumonia and low oxygen levels. You were much improved after treatment with steroids (dexamethasone) and an antibiotic for bronchitis called azithromycin, as well as with oxygen. You were not requiring any oxygen at all even with activity at the time of discharge. Please finish out one more day of azithromycin and 6 more days of dexamethasone- these were sent to the [facility] in [place]. Follow up with your PCP within 1 week. You should remain in quarantine until SaturdayJun 24. If you develop calf pain, leg swelling, worsening shortness of breath, chest pain, or any other worrisome symptom, please return to the hospital right away. Pending Studies at Discharge: Yes Stand-Alone Forms: My [facility], Work/School Release (Inpt) Medications and DC Order Prescriptions: New azithromycin 250 mg Tablet 250 mg PO QAM Qty: 1 RF: 0 dexamethasone 6 mg tablet 6 mg PO DAILY Qty: 6 RF: 0 Continued escitalopram oxalate 10 mg tablet 10 mg PO DAILY Qty: 90 RF: 3 CPAP Machine Misc See Rx Instructions .ROUTE .COMPLEX Qty: 1 RF: 0 Bystolic 5 mg tablet 5 mg PO HS Qty: 90 RF: 3 olmesartan-hydrochlorothiazide 40-25 mg tablet 1 tab PO DAILY Qty: 90 RF: 3 amlodipine 5 mg tablet 5 mg PO DAILY RF: 0 allopurinol 300 mg Tablet 300 mg PO DAILY RF: 0 Discharge Orders: Discharge Order (Routine); Ordered 06/16/20 Ordered By: Alana Winchester Admission Data Admit Date/Time: 06/13/20 05:59 Attending Provider: Alana Winchester Admit Provider: Noah Jaeger Primary Care Provider: Thanh Tracy Other Providers: Noah Jaeger Coding Level of Care Code D/C Day Management >30 mins Diagnoses Pneumonia due to COVID-19 virus U07.1; J12.82 Hypoxia R09.02 Depression with anxiety F41.8 Gout M10.9 Dyslipidemia E78.5 Hyperglycemia R73.9 Hypertension I10 Obstructive sleep apnea G47.33 Hemoptysis R04.2 DVT prophylaxis Z29.9
== END 2020-06-16 15:20 | disposition home or self-care (01) ==
LOC: ED 04:16 → 2S 05:59 → SUATTDRO 05:59 → 2S 06:42 → 2W 06-15 13:10